=== PATIENT | male | born 1980 | race Two or more races ===

== ENCOUNTER 2023-07-01 16:43 | Emergency (ER) | payer OTHER ==
[~2023-07-01] VITALS: Ht 188 cm; Wt 98.4 kg
[2023-07-01 17:20] VITALS: TEMP 98.3
[2023-07-01] MEDS ORDERED: ZOLP5TAB2 PO (20:07)
[2023-07-01] MEDS ORDERED: CYCL5TAB PO (20:07)
[2023-07-01] MEDS ORDERED: KETO10TA2 PO (20:07)
[2023-07-01 20:18] VITALS: BP 140/77; O2SAT 98
== END 2023-07-01 20:19 | disposition home or self-care (01) ==
LOC: ER 16:53
DX: S06.0XAA Concussion with loss of consciousness status unknown, initial encounter (principal); M54.42 Lumbago with sciatica, left side; M54.41 Lumbago with sciatica, right side; V89.2XXA Person injured in unspecified motor-vehicle accident, traffic, initial encounter; Y93.89 Activity, other specified; Y92.89 Other specified places as the place of occurrence of the external cause; Y99.8 Other external cause status
CPT/HCPCS: 70450-TC; 72125-TC; 72131-TC